=== PATIENT | male | born 2000 | race Caucasian/White ===

== ENCOUNTER 2020-06-10 18:02 | Emergency (ER) | payer OTHER ==
[~2020-06-10] VITALS: Ht 177.8 cm; Wt 100.0 kg
[2020-06-10 18:04] VITALS: BP 130/63
== END 2020-06-10 19:28 | disposition home or self-care (01) ==
LOC: EMS 18:02
DX: U07.1 COVID-19 (principal)
CPT/HCPCS: 99283; U0003